=== PATIENT | female | born 1965 | race Two or more races ===

== ENCOUNTER 2016-06-17 07:02 | Inpatient (IN) | payer OTHER ==
[~2016-06-17] VITALS: Ht 167.6 cm; Wt 89.8 kg
[~2016-06-17 07:02] MED LIST: LISI-646 PO
[2016-06-17] MEDS ORDERED: ALBUTEROL SULF 2.5 MG/0.5ML(0.5%) NEB SOLN NEB ONE (10:15)
[2016-06-17] MEDS ORDERED: IPRATROPIUM BROM 0.5 MG/2.5ML INH SOL NEB ONE (10:15)
[2016-06-17] MEDS ORDERED: methylPREDNISolone SOD SUCC 125 MG/2 ML VL IV ONE (10:15)
[2016-06-17 10:46] LABS: Basophils # (auto) 0 uL; Basophils % (auto) 0.4 % (0.0-2.0); Eosinophils # (auto) 0 uL; Hematocrit 43.1 % (36.0-46.0); Hemoglobin 14.8 g/dL (12.2-16.2); Lymphocytes # (auto) 1.8 uL; Lymphocytes % (auto) 27.7 % (10.0-50.0); Mean Corpuscular Hemoglobin 31.8 pg (28.0-32.0); Mean Corpuscular Hgb Conc. 34.4 g/dL (32.0-36.0); Mean Corpuscular Volume 92.2 fL (80.0-100.0); Mean Platelet Volume 9.5 fL (7.4-10.4); Monocytes # (auto) 0.5 uL; Monocytes % (auto) 7.5 % (0.0-12.0); Neutrophils # (auto) 4.3 uL; Neutrophils % (auto) 64.4 % (37.0-80.0); Platelet Count (auto) 158 10^3/uL (140-450); Red Cell Distribution Width 13.5 % (11.6-16.0); White Blood Cell 6.6 10^3/uL (4.4-10.8)
[2016-06-17 10:56] LABS: Albumin 3.4 g/dL (3.4-5.0); Anion Gap 12 (5-15); Aspartate Aminotransferase 24 U/L (15-37); BUN/Creatinine Ratio 12.6; Blood Urea Nitrogen 14 mg/dL (7-18); Carbon Dioxide 26 mmol/L (21-32); Chloride 96 mmol/L (98-107); GFR African American 66 mL/min; GFR Non-African American 55 mL/min; Glucose 87 mg/dL (74-106); Sodium 134 mmol/L (136-145)
[2016-06-17 11:01] LABS: Alkaline Phosphatase 61 U/L (45-117); Bilirubin, Total 0.3 mg/dL (0.2-1.0); Total Protein 6.9 g/dL (6.4-8.2)
[2016-06-17 11:02] LABS: B-Type Natriuretic Peptide 10.22 pg/mL (0-100); INR 1.09 (0.9-1.15); Partial Thromboplastin Time 36.9 sec (22.64-33.71); Prothrombin Time 11.2 sec (9.37-12.3)
[2016-06-17 11:05] LABS: Potassium 2.9 mmol/L (3.5-5.1)
[2016-06-17] MEDS ORDERED: POTASSIUM CHL 10% (20 MEQ/15ML) ORAL SOLN PO ONE (11:15)
[2016-06-17 11:44] LABS: Temperature: 22.4 C (20.0-25.0)
[2016-06-17] MEDS ORDERED: cefTRIAXone 1GM/50ML D5W 50 ML IV ONE (14:15)
[2016-06-17] MEDS ORDERED: ACETAMINOPHEN 325 MG TAB PO PRN (14:30)
[2016-06-17] MEDS ORDERED: MORPHINE SULF INJ 2 MG/ML SYRINGE 1ML IV PRN (14:30)
[2016-06-17] MEDS ORDERED: HCTZ 25 MG TAB PO ONE (14:30)
[2016-06-17] MEDS ORDERED: ONDANSETRON HCL 4 MG/2 ML VIAL IV PRN (14:30)
[2016-06-17] MEDS ORDERED: MULTIPLE VITAMIN TAB PO ONE (14:30)
[2016-06-17] MEDS ORDERED: NIFEdipine ER 30 MG TAB PO ONE (14:30)
[2016-06-17 15:30] LABS: Calcium 8.2 mg/dL (8.5-10.1); Potassium 3.6 mmol/L (3.5-5.1)
[2016-06-17 15:48] VITALS: BP 113/64
[2016-06-17] MEDS: HYDROcodone-ACET 5/325MG TAB PO PRN ×2 (15:58→20:14)
[2016-06-17] MEDS ORDERED: HYDR25TA4 PO (16:47)
[2016-06-17] MEDS ORDERED: BECL0.07 INH (16:52)
[2016-06-17] MEDS ORDERED: NIFE30TA76 PO (16:52)
[2016-06-17 17:15] VITALS: BP 113/64
[2016-06-17] MEDS: methylPREDNISolone SOD SUCC 40 MG/ML VL IV SCH (17:46)
[2016-06-17] MEDS: BUDESONIDE (INHALATION) 0.5 MG/2 ML NEB NEB SCH (19:35)
[2016-06-17] MEDS: IPRATROPIUM BROM 0.5 MG/2.5ML INH SOL NEB SCH (19:35)
[2016-06-17] MEDS: ALBUTEROL SULF 2.5 MG/0.5ML(0.5%) NEB SOLN NEB SCH (19:35)
[2016-06-17] MEDS: TEMAZEPAM 15 MG CAP PO PRN (20:13)
[2016-06-17 21:48] LABS: Urine Color Yellow (Yellow); Urine Nitrite Negative (Negative)
[2016-06-17 21:49] LABS: Urine Bilirubin Negative (Negative); Urine Blood Negative /uL (Negative); Urine Glucose 50 mg/dL (Normal); Urine Ketone Negative (Negative); Urine RBC <1 /hpf (0 - 4); Urine Urobilinogen Normal (Negative)
[2016-06-17 21:50] LABS: Urine Hyaline Cast MOD /lpf (0 - 2); Urine Squamous Epithelial Cell FEW /hpf (<5)
[2016-06-17] MEDS: SODIUM CHLOR 0.9% PF (SALINE LOCK) 10ML VIAL IV SCH (21:52)
[2016-06-17 22:00] VITALS: BP 105/65
[2016-06-18] VITALS (7 sets, daily range): BP systolic 106–126; BP diastolic 53–77
[2016-06-18] MEDS: methylPREDNISolone SOD SUCC 40 MG/ML VL IV SCH ×4 (00:07→17:55)
[2016-06-18] MEDS: HYDROcodone-ACET 5/325MG TAB PO PRN ×4 (00:07→20:36)
[2016-06-18] MEDS: IPRATROPIUM BROM 0.5 MG/2.5ML INH SOL NEB SCH ×4 (00:22→18:44)
[2016-06-18] MEDS: ALBUTEROL SULF 2.5 MG/0.5ML(0.5%) NEB SOLN NEB SCH ×4 (00:22→18:44)
[2016-06-18] MEDS: SODIUM CHLOR 0.9% PF (SALINE LOCK) 10ML VIAL IV SCH ×3 (06:06→22:13)
[2016-06-18 06:40] LABS: Basophils # (auto) 0 uL; Eosinophils # (auto) 0 uL; Hematocrit 45.3 % (36.0-46.0); Hemoglobin 15.6 g/dL (12.2-16.2); Lymphocytes # (auto) 1.1 uL; Lymphocytes % (auto) 7.4 % (10.0-50.0); Mean Corpuscular Hgb Conc. 34.4 g/dL (32.0-36.0); Mean Corpuscular Volume 92.9 fL (80.0-100.0); Mean Platelet Volume 9.2 fL (7.4-10.4); Monocytes # (auto) 0.6 uL; Monocytes % (auto) 3.8 % (0.0-12.0); Neutrophils # (auto) 13.1 uL; Neutrophils % (auto) 88.8 % (37.0-80.0); Platelet Count (auto) 174 10^3/uL (140-450); Red Cell Distribution Width 13.3 % (11.6-16.0); White Blood Cell 14.8 10^3/uL (4.4-10.8)
[2016-06-18 07:01] LABS: Potassium 3.3 mmol/L (3.5-5.1)
[2016-06-18 07:11] LABS: Albumin 3.4 g/dL (3.4-5.0); BUN/Creatinine Ratio 20.7; Calcium 8.4 mg/dL (8.5-10.1)
[2016-06-18 07:15] LABS: Bilirubin, Total 0.3 mg/dL (0.2-1.0); Total Protein 7.2 g/dL (6.4-8.2)
[2016-06-18] MEDS: BUDESONIDE (INHALATION) 0.5 MG/2 ML NEB NEB SCH ×2 (07:47→18:44)
[2016-06-18] MEDS: cefTRIAXone 1GM/50ML D5W 50 ML IV SCH (09:07)
[2016-06-18] MEDS: POTASSIUM CHL 10 Meq TABLET PO SCH (09:45)
[2016-06-18] MEDS: MULTIPLE VITAMIN TAB PO SCH (09:46)
[2016-06-18] MEDS: HCTZ 25 MG TAB PO SCH (09:50)
[2016-06-18] MEDS ORDERED: NIFEdipine ER 30 MG TAB PO SCH (10:00)
[2016-06-18] MEDS: NIFEdipine ER 30 MG TAB PO SCH (13:03)
[2016-06-18] MEDS: TEMAZEPAM 15 MG CAP PO PRN (20:36)
[2016-06-18] MEDS: DOCUSATE SOD 100 MG CAP PO PRN (20:37)
[2016-06-18] MEDS ORDERED: BECLOMETHASONE 40 MCG IN SCH (22:00)
[2016-06-19] MEDS: HYDROcodone-ACET 5/325MG TAB PO PRN ×3 (00:31→22:00)
[2016-06-19] MEDS: methylPREDNISolone SOD SUCC 40 MG/ML VL IV SCH ×4 (00:31→17:22)
[2016-06-19 05:00] VITALS: BP 116/71
[2016-06-19] MEDS: SODIUM CHLOR 0.9% PF (SALINE LOCK) 10ML VIAL IV SCH ×3 (05:44→21:57)
[2016-06-19 06:32] LABS: Basophils # (auto) 0 uL; Eosinophils # (auto) 0 uL; Hematocrit 44.8 % (36.0-46.0); Hemoglobin 15.3 g/dL (12.2-16.2); Lymphocytes # (auto) 1.1 uL; Lymphocytes % (auto) 8.1 % (10.0-50.0); Mean Corpuscular Hgb Conc. 34.1 g/dL (32.0-36.0); Mean Corpuscular Volume 93.8 fL (80.0-100.0); Mean Platelet Volume 9.5 fL (7.4-10.4); Monocytes # (auto) 0.7 uL; Monocytes % (auto) 5.1 % (0.0-12.0); Neutrophils # (auto) 12.3 uL; Neutrophils % (auto) 86.8 % (37.0-80.0); Platelet Count (auto) 172 10^3/uL (140-450); Red Cell Distribution Width 13.6 % (11.6-16.0); White Blood Cell 14.1 10^3/uL (4.4-10.8)
[2016-06-19] MEDS: ALBUTEROL SULF 2.5 MG/0.5ML(0.5%) NEB SOLN NEB SCH ×4 (07:03→19:28)
[2016-06-19] MEDS: IPRATROPIUM BROM 0.5 MG/2.5ML INH SOL NEB SCH ×4 (07:04→19:28)
[2016-06-19 07:34] VITALS: BP 104/69
[2016-06-19 08:00] VITALS: BP 104/69
[2016-06-19] MEDS: cefTRIAXone 1GM/50ML D5W 50 ML IV SCH (09:00)
[2016-06-19] MEDS: NIFEdipine ER 30 MG TAB PO SCH (10:00)
[2016-06-19] MEDS: POTASSIUM CHL 10 Meq TABLET PO SCH (10:08)
[2016-06-19] MEDS: MULTIPLE VITAMIN TAB PO SCH (10:08)
[2016-06-19] MEDS: HCTZ 25 MG TAB PO SCH (10:08)
[2016-06-19] MEDS: BUDESONIDE (INHALATION) 0.5 MG/2 ML NEB NEB SCH ×2 (11:22→19:29)
[2016-06-19 11:56] VITALS: BP 98/60
[2016-06-19 16:35] VITALS: BP 104/48
[2016-06-19] MEDS: DOCUSATE SOD 100 MG CAP PO PRN (21:53)
[2016-06-19 22:00] VITALS: BP 124/71
[2016-06-19] MEDS: TEMAZEPAM 15 MG CAP PO PRN (22:00)
[2016-06-20] MEDS: methylPREDNISolone SOD SUCC 40 MG/ML VL IV SCH ×3 (00:19→12:00)
[2016-06-20] MEDS: ALBUTEROL SULF 2.5 MG/0.5ML(0.5%) NEB SOLN NEB SCH ×2 (00:30→06:32)
[2016-06-20] MEDS: IPRATROPIUM BROM 0.5 MG/2.5ML INH SOL NEB SCH ×2 (00:30→06:32)
[2016-06-20 05:00] VITALS: BP 133/77
[2016-06-20] MEDS: SODIUM CHLOR 0.9% PF (SALINE LOCK) 10ML VIAL IV SCH (06:15)
[2016-06-20] MEDS: BUDESONIDE (INHALATION) 0.5 MG/2 ML NEB NEB SCH (06:32)
[2016-06-20 08:00] VITALS: BP 119/62
[2016-06-20 08:30] VITALS: BP 119/62
[2016-06-20] MEDS: cefTRIAXone 1GM/50ML D5W 50 ML IV SCH (08:42)
[2016-06-20] MEDS: HCTZ 25 MG TAB PO SCH (09:31)
[2016-06-20] MEDS: MULTIPLE VITAMIN TAB PO SCH (09:31)
[2016-06-20] MEDS: POTASSIUM CHL 10 Meq TABLET PO SCH (09:31)
[2016-06-20] MEDS: NIFEdipine ER 30 MG TAB PO SCH (09:31)
[2016-06-20] MEDS: DOCUSATE SOD 100 MG CAP PO PRN (09:49)
[2016-06-20 10:18] VITALS: BP 119/62
== END 2016-06-20 12:20 | disposition home or self-care (01) | DRG 720 ==
LOC: ER 07:05 → OVERFLOW 07:06 → CENTRAL 15:33
PROVIDERS: ADMIT Internal Medicine; ATTEND Internal Medicine
DX: A41.9 Sepsis, unspecified organism (principal); J44.0 Chronic obstructive pulmonary disease with (acute) lower respiratory infection; J44.1 Chronic obstructive pulmonary disease with (acute) exacerbation; E87.1 Hypo-osmolality and hyponatremia; J45.901 Unspecified asthma with (acute) exacerbation; N18.3 Chronic kidney disease, stage 3 (moderate); E83.51 Hypocalcemia; J20.9 Acute bronchitis, unspecified; E87.6 Hypokalemia; I12.9 Hypertensive chronic kidney disease with stage 1 through stage 4 chronic kidney disease, or unspecified chronic kidney disease; T38.0X5A Adverse effect of glucocorticoids and synthetic analogues, initial encounter; F17.210 Nicotine dependence, cigarettes, uncomplicated; Z90.49 Acquired absence of other specified parts of digestive tract; Z79.899 Other long term (current) drug therapy; Z83.6 Family history of other diseases of the respiratory system; Y92.89 Other specified places as the place of occurrence of the external cause
CPT/HCPCS: 36415; 71020; 80048; 80053; 81001; 83880; 84484; 85025; 85610; 85730; 93005; 94640; 96365; 96375; J0696

== ENCOUNTER 2016-12-02 06:09 | Emergency (ER) | payer OTHER ==
[~2016-12-02] VITALS: Ht 167.6 cm; Wt 81.6 kg
[~2016-12-02 06:09] MED LIST changes: +BECL0.07 INH; +HYDR25TA4 PO; -LISI-646 PO; +NIFE30TA76 PO
[2016-12-02 06:20] VITALS: BP 124/74
== END 2016-12-02 08:06 | disposition home or self-care (01) ==
LOC: ER 06:11
DX: S62.307A Unspecified fracture of fifth metacarpal bone, left hand, initial encounter for closed fracture (principal); J44.9 Chronic obstructive pulmonary disease, unspecified; I10 Essential (primary) hypertension; F17.210 Nicotine dependence, cigarettes, uncomplicated; Y04.0XXA Assault by unarmed brawl or fight, initial encounter; Y93.89 Activity, other specified; Y99.8 Other external cause status; Y92.89 Other specified places as the place of occurrence of the external cause
CPT/HCPCS: 29125; 73130

== ENCOUNTER 2017-06-14 17:27 | Emergency (ER) | payer OTHER ==
[~2017-06-14] VITALS: Ht 170.2 cm; Wt 77.1 kg
[2017-06-14 20:25] VITALS: BP 115/75
[2017-06-14] MEDS ORDERED: ONDANSETRON HCL 4 MG/2 ML VIAL IM ONE (20:45)
[2017-06-14] MEDS ORDERED: HYDROcodone-ACET 7.5/325MG TAB PO ONE (21:15)
== END 2017-06-14 21:30 | disposition home or self-care (01) ==
LOC: ER 17:39
DX: G24.3 Spasmodic torticollis (principal); J44.9 Chronic obstructive pulmonary disease, unspecified; I10 Essential (primary) hypertension; F17.210 Nicotine dependence, cigarettes, uncomplicated; Z90.49 Acquired absence of other specified parts of digestive tract
CPT/HCPCS: 72040; 96372; 99284; J2405

== ENCOUNTER 2018-09-22 03:55 | Inpatient (IN) | payer OTHER ==
[~2018-09-22] VITALS: Ht 170.2 cm; Wt 77.0 kg
[2018-09-22] MEDS ORDERED: ALBUTEROL SULF 2.5 MG/0.5ML(0.5%) NEB SOLN HHN STA (04:24)
[2018-09-22] MEDS ORDERED: methylPREDNISolone SOD SUCC 125 MG/2 ML VL ONE (04:28)
[2018-09-22] MEDS ORDERED: SODIUM CHLORIDE 0.9% 1,000 ML IV ONE (04:30)
[2018-09-22] MEDS ORDERED: IPRATROPIUM BROM 0.5 MG/2.5ML INH SOL NEB ONE (04:30)
[2018-09-22] MEDS ORDERED: methylPREDNISolone SOD SUCC 125 MG/2 ML VL IV ONE (04:30)
[2018-09-22 05:54] LABS: Basophils # (auto) 0 uL; Basophils % (auto) 0.6 % (0.0-2.0); Eosinophils # (auto) 0 uL; Eosinophils % (auto) 0.5 % (0.0-7.0); Hematocrit 41.4 % (36.0-46.0); Hemoglobin 14.4 g/dL (12.2-16.2); Lymphocytes # (auto) 1.1 uL; Lymphocytes % (auto) 21.5 % (10.0-50.0); Mean Corpuscular Hemoglobin 32.4 pg (28.0-32.0); Mean Corpuscular Hgb Conc. 34.8 g/dL (32.0-36.0); Mean Corpuscular Volume 93.1 fL (80.0-100.0); Monocytes # (auto) 0.5 uL; Monocytes % (auto) 10.4 % (0.0-12.0); Neutrophils # (auto) 3.5 uL; Platelet Count (auto) 123 10^3/uL (140-450); Red Blood Cells 4.44 10^6/uL (4.0-5.20); Red Cell Distribution Width 13.3 % (11.8-14.3); White Blood Cell 5.2 10^3/uL (4.4-10.8)
[2018-09-22 06:00] LABS: Albumin 3.2 g/dL (3.4-5.0); Anion Gap 6 (5-15); Blood Urea Nitrogen 5 mg/dL (7-18); Carbon Dioxide 28 mmol/L (21-32); Chloride 106 mmol/L (98-107); Glucose 111 mg/dL (74-106); Sodium 140 mmol/L (136-145)
[2018-09-22 06:07] LABS: Alanine Aminotransferase 32 U/L (13-56); Alkaline Phosphatase 76 U/L (45-117); Aspartate Aminotransferase 19 U/L (15-37); BUN/Creatinine Ratio 6.9; Bilirubin, Total 0.4 mg/dL (0.2-1.0); GFR African American 108 mL/min; GFR Non-African American 89 mL/min; Total Protein 6.2 g/dL (6.4-8.2)
[2018-09-22 06:12] LABS: Potassium 2.9 mmol/L (3.5-5.1)
[2018-09-22 06:14] LABS: INR 0.98 (0.9-1.15); Partial Thromboplastin Time 32.8 sec (23.64-32.05)
[2018-09-22] MEDS ORDERED: POTASSIUM CHL 20 Meq TABLET PO ONE (06:15)
[2018-09-22] MEDS: POTASSIUM CHL 20MEQ/100ML 100 ML IV SCH ×2 (06:26→08:15)
[2018-09-22] MEDS ORDERED: ALBUTEROL SULF 2.5 MG/0.5ML(0.5%) NEB SOLN HHN ONE (06:30)
[2018-09-22] MEDS ORDERED: LEVOFLOXACIN 500MG 100 ML IV ONE (06:30)
[2018-09-22] MEDS ORDERED: SODIUM CHLORIDE 0.9% 500 ML IV ONE (06:30)
[2018-09-22] MEDS ORDERED: IOHEXOL 350 MG/ML 100ML IJ ONE (07:09)
[2018-09-22] MEDS ORDERED: POTASSIUM CHLORIDE 20 MEQ, LIDOCAINE 1% (LOCAL ANESTH.) 2 ML in SODIUM CHL 0.9% 100 ML IV ONE (08:30)
[2018-09-22] MEDS ORDERED: MORPHINE SULF INJ 2 MG/ML SYRINGE 1ML IV PRN ×2 (14:45)
[2018-09-22] MEDS ORDERED: ATORVASTATIN 20 MG TAB PO ONE (14:45)
[2018-09-22] MEDS ORDERED: NITROGLYCERIN 0.4 MG SL TAB SL PRN (14:45)
[2018-09-22] MEDS ORDERED: ACETAMINOPHEN 500 MG TAB PO PRN (14:45)
[2018-09-22] MEDS ORDERED: ONDANSETRON HCL 4 MG/2 ML VIAL IV PRN (14:45)
[2018-09-22] MEDS: SODIUM CHLORIDE 0.9% 1,000 ML IV SCH (14:52)
[2018-09-22 15:12] LABS: Urine Bacteria NONE SEEN /hpf (None Seen); Urine Blood Negative /uL (Negative); Urine Specific Gravity 1.008 (1.001-1.035); Urine WBC <1 /hpf (0 - 5)
[2018-09-22] MEDS: IPRATROPIUM BROM 0.5 MG/2.5ML INH SOL NEB SCH ×2 (19:07→22:23)
[2018-09-22] MEDS: ALBUTEROL SULF 2.5 MG/0.5ML(0.5%) NEB SOLN NEB SCH ×2 (19:07→22:23)
[2018-09-22] MEDS: BUDESONIDE (INHALATION) 0.5 MG/2 ML NEB NEB SCH (19:07)
[2018-09-22 19:44] VITALS: BP 115/73
--- NOTE | 2018-09-22 19:47 | NUR ---
Telemetry admit from ER CATHYGENNA PEÑA admitted to Telemetry unit after no SBAR received. Patient oriented to ESTELA STACK, RN primary RN, unit, room, bed, and unit policies regarding patient care and visiting hours. Patient now on continuous telemetry monitoring, tele box # [id number] and telemetry reading on arrival to unit is sinus rhythm at 82 beats per minute with notched P waves. Patient placed on bedside oxygen at 5.0 liters via oxymizer, weighed by bedscale and encouraged to call if they need something. All questions and concerns addressed, patient verbalized understanding. Bed in lowest locked position, side rails up x2, call light within reach. Patient reporting 9/10 pain to bilateral ribs after coughing, will medicate as ordered and continue to monitor. Will continue to round every hour and as needed.
[2018-09-22] MEDS ORDERED: TRAM50TA2 PO (20:14)
[2018-09-22] MEDS ORDERED: SIMV10TA73 PO (20:14)
[2018-09-22] MEDS ORDERED: TIZA4CAP PO (20:14)
[2018-09-22 22:00] VITALS: BP 114/70
[2018-09-23] MEDS: SODIUM CHLORIDE 0.9% 1,000 ML IV SCH ×3 (00:44→20:32)
[2018-09-23 05:44] VITALS: BP 111/66
--- NOTE | 2018-09-23 06:45 | NUR ---
Closing Note Patient lying in bed, eyes closed, respirations even and unlabored, appears asleep. No s/s of distress. Will endorse care to dayshift RN.
[2018-09-23] MEDS: IPRATROPIUM BROM 0.5 MG/2.5ML INH SOL NEB SCH ×5 (06:57→22:59)
[2018-09-23] MEDS: ALBUTEROL SULF 2.5 MG/0.5ML(0.5%) NEB SOLN NEB SCH ×5 (06:57→22:59)
--- NOTE | 2018-09-23 07:30 | NUR ---
OPENING SHIFT NOTE PATIENT UP AMBULATING WITH A STEADY GAIT. DENIES ANY PAIN SOB OR ANY DISTRESS. PATIENT VERBALIZED UNDERSTANDING OF DAYS POC. WILL CONTINUE TO MONITOR Addendum: 09/23/18 at 1116 by BRIANNE EDWARDS RN RN WRONG PATIENT NOTE
--- NOTE | 2018-09-23 07:35 | NUR ---
OPENING SHIFT NOTE PATIENT LAYING IN BED. DENIES SOB OR ANY DISTRESS. PATIENT VERBALIZED HAVING PAIN FROM COUGHING WILL GIVE MEDICATIONS ORDERED. PATIENT VERBALIZED UNDERSTANDING POC. BED IS IN LOWEST LOCKED POSITION. CALL LIGHT IS WITHIN REACH. WILL CONTINUE TO MONITOR
[2018-09-23] MEDS: HYDROcodone-ACET 5/325MG TAB PO PRN ×2 (08:22→20:32)
[2018-09-23] MEDS: cefTRIAXone 1GM/50ML D5W 50 ML IV SCH (08:22)
[2018-09-23 08:36] LABS: Basophils # (auto) 0 uL; Basophils % (auto) 0.5 % (0.0-2.0); Eosinophils # (auto) 0 uL; Eosinophils % (auto) 0.5 % (0.0-7.0); Hematocrit 41.1 % (36.0-46.0); Lymphocytes # (auto) 2.7 uL; Lymphocytes % (auto) 34.4 % (10.0-50.0); Mean Corpuscular Hemoglobin 31.9 pg (28.0-32.0); Mean Corpuscular Hgb Conc. 33.9 g/dL (32.0-36.0); Mean Corpuscular Volume 94.1 fL (80.0-100.0); Monocytes # (auto) 0.9 uL; Monocytes % (auto) 11.8 % (0.0-12.0); Neutrophils # (auto) 4.2 uL; Neutrophils % (auto) 52.8 % (37.0-80.0); Platelet Count (auto) 118 10^3/uL (140-450); Red Blood Cells 4.37 10^6/uL (4.0-5.20); Red Cell Distribution Width 13.5 % (11.8-14.3); White Blood Cell 7.9 10^3/uL (4.4-10.8)
[2018-09-23 08:41] LABS: Potassium 3.2 mmol/L (3.5-5.1)
[2018-09-23 08:51] LABS: BUN/Creatinine Ratio 15.7; Bilirubin, Total 0.4 mg/dL (0.2-1.0); Calcium 8.2 mg/dL (8.5-10.1); Magnesium 2.5 mg/dL (1.6-2.6); Total Protein 6.3 g/dL (6.4-8.2)
--- NOTE | 2018-09-23 10:00 | NUR ---
IV insertion IV access obtained, via clean sterile technique by inserting 22 gauge catheter at RIGHT WRIST after 2 attempt(s). IV secured properly. No trauma to site. Patient tolerated well.
--- NOTE | 2018-09-23 10:00 | NUR ---
IV removal IV DC'd with clean sterile technique, catheter fully intact. Pressure dressing applied to site. Patient tolerated well.
[2018-09-23] MEDS: NIFEdipine ER 30 MG TAB PO SCH (10:05)
[2018-09-23] MEDS: PANTOPRAZOLE 40 MG TAB PO SCH (10:06)
[2018-09-23] MEDS: AZITHROMYCIN 500MG/ 250ML 250 ML IV SCH (10:07)
[2018-09-23] MEDS: BUDESONIDE (INHALATION) 0.5 MG/2 ML NEB NEB SCH ×2 (10:08→22:59)
--- NOTE | 2018-09-23 14:40 | NUR ---
AT BEDSIDE FARIDA AT BEDSIDE. GAVE NEW ORDERS, READ BACK TO VERIFY. WILL CARRY OUT ORDERS
[2018-09-23] MEDS: Ensure Enlive Chocolate 8oz Bottle PO SCH (18:00)
[2018-09-23] MEDS: guaiFENesin 200 MG/10 ML UD PO SCH ×2 (18:30→21:54)
--- NOTE | 2018-09-23 19:13 | NUR ---
Opening Shift Note Assumed care of patient, awake and alertx4. No S/S of distress/SOB or pain. Bed is in lowest position, call light is within reach, side rails up x2. Instructed on POC and to call for assist PRN, will continue to monitor for changes Q1hr and PRN.
--- NOTE | 2018-09-23 19:17 | NUR ---
END OF SHIFT NOTE PATIENT IN BED WATCHING TV WHILE ON HER PHONE SHOWING NO S.S OF DISTRESS OR SOB. BED IS IN LOWEST LOCKED POSITION CALL LIGHT WITHIN REACH. ENDORSING CARE TO NOC RN
[2018-09-23 22:00] VITALS: BP 132/78
[2018-09-24 05:00] VITALS: BP 117/66
[2018-09-24 06:27] LABS: Basophils # (auto) 0 uL; Basophils % (auto) 0.5 % (0.0-2.0); Eosinophils # (auto) 0.1 uL; Eosinophils % (auto) 1.4 % (0.0-7.0); Hematocrit 40.4 % (36.0-46.0); Hemoglobin 13.9 g/dL (12.2-16.2); Lymphocytes # (auto) 2.3 uL; Lymphocytes % (auto) 31.8 % (10.0-50.0); Mean Corpuscular Hemoglobin 32.1 pg (28.0-32.0); Mean Corpuscular Hgb Conc. 34.4 g/dL (32.0-36.0); Mean Corpuscular Volume 93.2 fL (80.0-100.0); Monocytes # (auto) 0.6 uL; Monocytes % (auto) 8.7 % (0.0-12.0); Neutrophils # (auto) 4.2 uL; Neutrophils % (auto) 57.6 % (37.0-80.0); Nucleated Red Blood Cells % 0.1 %; Platelet Count (auto) 129 10^3/uL (140-450); Red Blood Cells 4.34 10^6/uL (4.0-5.20); Red Cell Distribution Width 13.7 % (11.8-14.3); White Blood Cell 7.3 10^3/uL (4.4-10.8)
[2018-09-24] MEDS: SODIUM CHLORIDE 0.9% 1,000 ML IV SCH ×2 (06:33→16:45)
[2018-09-24] MEDS: IPRATROPIUM BROM 0.5 MG/2.5ML INH SOL NEB SCH ×5 (06:48→22:34)
[2018-09-24] MEDS: ALBUTEROL SULF 2.5 MG/0.5ML(0.5%) NEB SOLN NEB SCH ×5 (06:48→22:33)
[2018-09-24 06:50] LABS: Potassium 3.4 mmol/L (3.5-5.1)
[2018-09-24 06:53] LABS: Calcium 8.5 mg/dL (8.5-10.1)
--- NOTE | 2018-09-24 07:40 | NUR ---
OPENING SHIFT NOTE PATIENT IS AWAKE UP IN BED WATCHING TV AND EATING BREAKFAST. PATIENT DENIES PAIN, SOB OR ANY DISTRESS. PATIENT VERBALIZED UNDERSTANDING OF DAYS POC. BED IS IN LOWEST LOCKED POSITION CALL LIGHT IS WITHIN REACH
[2018-09-24] MEDS: Ensure Enlive Chocolate 8oz Bottle PO SCH ×3 (08:00→18:00)
[2018-09-24 09:03] VITALS: BP 104/58
[2018-09-24] MEDS: AZITHROMYCIN 500MG/ 250ML 250 ML IV SCH (09:04)
[2018-09-24] MEDS: cefTRIAXone 1GM/50ML D5W 50 ML IV SCH (09:04)
[2018-09-24] MEDS: PANTOPRAZOLE 40 MG TAB PO SCH (09:05)
[2018-09-24] MEDS: NICOTINE 21MG/24 HR TOPICAL PATCH TD SCH (09:05)
[2018-09-24] MEDS: NIFEdipine ER 30 MG TAB PO SCH (09:06)
[2018-09-24] MEDS: BUDESONIDE (INHALATION) 0.5 MG/2 ML NEB NEB SCH ×2 (10:15→18:39)
[2018-09-24] MEDS: guaiFENesin 200 MG/10 ML UD PO SCH ×4 (10:25→21:18)
[2018-09-24 10:51] LABS: BUN/Creatinine Ratio 11.5
[2018-09-24] MEDS ORDERED: POTASSIUM CHL 10 Meq TABLET PO ONE (11:15)
[2018-09-24 12:46] VITALS: BP 122/68
[2018-09-24 16:19] VITALS: BP 104/59
[2018-09-24] MEDS: HYDROcodone-ACET 5/325MG TAB PO PRN (17:47)
--- NOTE | 2018-09-24 18:45 | NUR ---
END OF SHIFT NOTE PATIENT LAYING IN BED WATCHING TV. SHOWING NO S.S OF DISTRESS OR SOB. BED IS IN LOWEST LOCKED POSITION CALL LIGHT WITHIN REACH WILL ENDORSE CARE TO NOC RN
--- NOTE | 2018-09-24 19:40 | NUR ---
OPENING SHIFT NOTE RECEIVED REPORT FROM DAYSHIFT RN. PATIENT RESTING COMFORTABLY IN BED WITH EYES CLOSED. NO S/S OF DISTRESS OR SOB. NO PAIN NOTED OR REPORTED. PATIENT A/O X4. UPDATED PATIENT ON POC, VERBALIZED UNDERSTANDING. BED LOCKED IN LOW POSITION, CALL LIGHT WITHIN REACH. WILL CONTINUE TO MONITOR PATIENT Q1HR AND PRN.
[2018-09-24 22:29] VITALS: BP 99/59
[2018-09-25] MEDS: SODIUM CHLORIDE 0.9% 1,000 ML IV SCH ×3 (02:09→22:45)
[2018-09-25 05:23] VITALS: BP 121/69
[2018-09-25 05:52] LABS: Basophils # (auto) 0 uL; Basophils % (auto) 0.7 % (0.0-2.0); Eosinophils # (auto) 0.1 uL; Eosinophils % (auto) 2.2 % (0.0-7.0); Hematocrit 43.3 % (36.0-46.0); Hemoglobin 14.7 g/dL (12.2-16.2); Lymphocytes # (auto) 1.9 uL; Lymphocytes % (auto) 29.6 % (10.0-50.0); Mean Corpuscular Hemoglobin 32.3 pg (28.0-32.0); Mean Corpuscular Volume 94.9 fL (80.0-100.0); Monocytes # (auto) 0.7 uL; Monocytes % (auto) 11.3 % (0.0-12.0); Neutrophils # (auto) 3.6 uL; Neutrophils % (auto) 56.2 % (37.0-80.0); Platelet Count (auto) 158 10^3/uL (140-450); Red Blood Cells 4.56 10^6/uL (4.0-5.20); Red Cell Distribution Width 13.5 % (11.8-14.3); White Blood Cell 6.4 10^3/uL (4.4-10.8)
[2018-09-25] MEDS: ALBUTEROL SULF 2.5 MG/0.5ML(0.5%) NEB SOLN NEB SCH ×5 (06:12→22:30)
[2018-09-25] MEDS: IPRATROPIUM BROM 0.5 MG/2.5ML INH SOL NEB SCH ×5 (06:12→22:30)
[2018-09-25 06:13] LABS: BUN/Creatinine Ratio 16.2; Calcium 9.2 mg/dL (8.5-10.1); Potassium 5.1 mmol/L (3.5-5.1)
--- NOTE | 2018-09-25 07:30 | NUR ---
Opening Note Received report from scientific photographer RN. Patient is awake, alert and oriented x4. No signs or symptoms of distress noted at this time. Patient is on 2L NC, denies shortness of breath at this time. Patient complains of upper abdominal pain 5/10, pain increases when coughing. Patient not requesting pain medications at this time. Reviewed plan of care with patient, patient verbalized understanding. Bed in low and locked position, call light within reach. Bed in low and locked position,call light within reach. Will continue to monitor Q1 hour and PRN.
[2018-09-25] MEDS: Ensure Enlive Chocolate 8oz Bottle PO SCH ×3 (08:09→17:33)
[2018-09-25] MEDS: guaiFENesin 200 MG/10 ML UD PO SCH ×4 (08:09→22:05)
[2018-09-25 08:47] VITALS: BP 111/60
[2018-09-25] MEDS: PANTOPRAZOLE 40 MG TAB PO SCH (09:34)
[2018-09-25] MEDS: NIFEdipine ER 30 MG TAB PO SCH (09:34)
[2018-09-25] MEDS: cefTRIAXone 1GM/50ML D5W 50 ML IV SCH (09:35)
[2018-09-25] MEDS: NICOTINE 21MG/24 HR TOPICAL PATCH TD SCH (09:35)
[2018-09-25] MEDS: BUDESONIDE (INHALATION) 0.5 MG/2 ML NEB NEB SCH ×2 (10:07→18:15)
--- NOTE | 2018-09-25 10:07 | NUR ---
Respiratory note: PT PLACED ON RA FOR POSSIBLE RA ABG FOR HOME OXYGEN QUALIFICATION. SPO2 NOTED TO BE 94%. 2L N/C BEDSIDE. PT AWARE OF BEING PLACED ON RA, DENIES ANY SOB OR DIFF BREATHING. WILL CONTINUE TO MONITOR. MED NEB TX GIVEN AT THIS TIME VIA MASK WITHOUT INCIDENT. TX BEING NEBULIZED ON MEDICAL AIR.
[2018-09-25] MEDS: AZITHROMYCIN 500MG/ 250ML 250 ML IV SCH (10:38)
--- NOTE | 2018-09-25 10:38 | NUR ---
Respiratory note: SPO2 ASSESSED ON RA S/P 30 MINUTES. SPO2 92%. PT DENIES SOB OR DIFF BREATHING.
--- NOTE | 2018-09-25 10:50 | NUR ---
Respiratory note: ASSIGNED HOSPITALIST PAGED FOR NOTIFICATION OF SPO2 92% ON RA AND TO VERIFY IF ABG IS STILL NEEDED.
[2018-09-25 12:34] VITALS: BP 131/73
--- NOTE | 2018-09-25 12:34 | NUR ---
Nutrition Assessment Notes please see attached link for complete assessment Est. Needs BW [id number] kcal (23-25 kcal/kgBW), 75-82 gms pro (1.0-1.1 gms/kgBW). Will continue to monitor pertinent labs and reassess nutrient need prn Addendum: 09/25/18 at [address] Amended: Links added.
[2018-09-25] MEDS: methylPREDNISolone SOD SUCC 40 MG/ML VL IV SCH ×3 (14:12→23:53)
--- NOTE | 2018-09-25 14:50 | NUR ---
IV catheter removed IV catheter removed from right hand, catheter intact. Pressure dressing applied. Patient tolerated well.
--- NOTE | 2018-09-25 14:51 | NUR ---
IV Insertion IV access obtained, via clean sterile technique by inserting 22 gauge catheter at [facility] after one attempt. IV secured properly. No trauma to site. Patient tolerated procedure well.
[2018-09-25 16:48] VITALS: BP 140/81
[2018-09-25] MEDS: HYDROcodone-ACET 5/325MG TAB PO PRN (17:34)
--- NOTE | 2018-09-25 19:15 | NUR ---
Closing Note Report given to fitness attendant MIKE Narvaez. Patient is awake, alert and oriented x4. No signs or symptoms of distress noted at this time.
[2018-09-25 20:34] VITALS: BP 140/81
[2018-09-25 22:00] VITALS: BP 115/62
[2018-09-26 05:00] VITALS: BP 126/72
[2018-09-26] MEDS: methylPREDNISolone SOD SUCC 40 MG/ML VL IV SCH ×3 (05:42→17:13)
[2018-09-26] MEDS: IPRATROPIUM BROM 0.5 MG/2.5ML INH SOL NEB SCH ×5 (06:40→21:28)
[2018-09-26] MEDS: ALBUTEROL SULF 2.5 MG/0.5ML(0.5%) NEB SOLN NEB SCH ×5 (06:41→21:28)
--- NOTE | 2018-09-26 07:12 | NUR ---
Opening Note Received report from shift mechanic RN. Patient is awake, alert and oriented x4. No signs or symptoms of distress noted at this time. Patient is on room air, denies shortness of breath at this time. Patient denies pain at this time. Reviewed plan of care with patient, patient verbalized understanding. Bed in low and locked position, call light within reach. Will continue to monitor Q1 hour and PRN.
[2018-09-26] MEDS: guaiFENesin 200 MG/10 ML UD PO SCH ×4 (08:40→21:41)
[2018-09-26] MEDS: Ensure Enlive Chocolate 8oz Bottle PO SCH ×3 (08:40→18:29)
[2018-09-26] MEDS: NICOTINE 21MG/24 HR TOPICAL PATCH TD SCH (08:45)
[2018-09-26] MEDS: cefTRIAXone 1GM/50ML D5W 50 ML IV SCH (08:46)
[2018-09-26] MEDS: PANTOPRAZOLE 40 MG TAB PO SCH (08:46)
[2018-09-26] MEDS: NIFEdipine ER 30 MG TAB PO SCH (08:46)
[2018-09-26] MEDS: LEVOFLOXACIN 500 MG TAB PO SCH (08:48)
[2018-09-26] MEDS: SODIUM CHLORIDE 0.9% 1,000 ML IV SCH ×3 (08:52→21:30)
[2018-09-26 09:00] VITALS: BP 127/69
--- NOTE | 2018-09-26 09:48 | NUR ---
Respiratory note: ABG ON ROOM AIR NOT DONE. PT REFUSED. SPO2 95% ON ROOM AIR. RN NOTIFIED.
[2018-09-26] MEDS: BUDESONIDE (INHALATION) 0.5 MG/2 ML NEB NEB SCH ×2 (09:50→21:28)
[2018-09-26 13:00] VITALS: BP 123/66
[2018-09-26 17:00] VITALS: BP 133/75
--- NOTE | 2018-09-26 18:05 | NUR ---
closing Note Report given to night clerk auditor RN. Patient is ambulating in hallway. No signs or symptoms of distress noted at this time.
--- NOTE | 2018-09-26 19:50 | NUR ---
AMBULATION PATIENT AMBULATING UP AND DOWN HALLWAYS AROUND NURSING STATION. NO S/S OF DISTRESS NOTED, PATIENT ON ROOM AIR. STEADY GAIT NOTED. PATIENT WAITING FOR DOCTOR TO ROUND, PATIENT STATES SHE WANTS TO GO HOME.
--- NOTE | 2018-09-26 20:15 | NUR ---
HOSPITALIST PAGED PATIENT WANTS TO LEAVE AMA
--- NOTE | 2018-09-26 20:18 | NUR ---
AMA Note GENNA MORGAN states they want to leave the hospital Against Medical Advice (AMA). Patient encouraged to stay for further treatment/stabilization. Hospitalist paged, awaiting return call. Patient states she does not wish to wait and be seen by MD. Patient advised of the risks and benefits of leaving AMA. Patient verbalized understanding. Patient encouraged to return to the ER if symptoms do not improve or worsen.
--- NOTE | 2018-09-26 20:20 | NUR ---
AMA Patient pulling at IV dressing to be removed, instructed patient I will remove IV line. IV removed from right hand with catheter intact, pressure dressing applied. Patient removed her Telemetry unit and set it at bedside, Telemetry unit returned to [facility]. No distress noted at time of departure.
--- NOTE | 2018-09-26 20:40 | NUR ---
PATIENT DECIDED NOT TO LEAVE AMA. PATIENT BACK IN BED WITH NO S/S OF DISTRESS NOTED. AWAITING CALL BACK FROM HOSPITALIST. WILL PLACE PATIENT BACK ON TELEMETRY AND INSERT NEW IV LINE.
--- NOTE | 2018-09-26 20:40 | NUR ---
IV insertion IV access obtained, via clean sterile technique by inserting 20 gauge catheter at Left AC after 1 attempt. IV secured properly. No trauma to site. Patient tolerated well. NOTE: Patient connected to IV Fluids running NS@100ml/hr as ordered. Addendum: 09/26/18 at 214 by Bernadette Levy RN CORRECT TIME 214
--- NOTE | 2018-09-26 20:51 | NUR ---
HOSPITALIST RETURNS CALL HOSPITALIST FRANCOISE RETURNS CALL, UPDATED ON PATIENT WANTING TO LEAVE AMA. PATIENT DECIDED TO STAY. PATIENT OF PER PATIENT DOCTOR DID NOT SEE HER TODAY TO DISCHARGE, NO NEW ORDERS RECEIVED.
--- NOTE | 2018-09-26 20:59 | NUR ---
RT PAGED FOR BREATHING TREATMENT.
[2018-09-26 21:07] VITALS: BP 143/82
--- NOTE | 2018-09-26 21:35 | NUR ---
PATIENT BACK ON TELEMETRY. TELE BOX #10 PLACED ON PATIENT. TELE READING IS NSR@86BPM.
--- NOTE | 2018-09-26 21:40 | NUR ---
IV insertion IV access obtained, via clean sterile technique by inserting 20 gauge catheter at Left AC after 1 attempt. IV secured properly. No trauma to site. Patient tolerated well. NOTE: Patient connected to IV Fluids running NS@100ml/hr as ordered.
--- NOTE | 2018-09-26 22:20 | NUR ---
IV removal IV DC'd Left AC with clean sterile technique, catheter fully intact. Pressure dressing applied to site. Patient tolerated well. NOTE: Patient reporting IV site discomfort/ IV site benign. Patient requesting IV site be changed.
--- NOTE | 2018-09-26 22:35 | NUR ---
IV insertion IV access obtained, via clean sterile technique by inserting 22 gauge catheter at Right Hand after 1 attempt. IV secured properly. No trauma to site. Patient tolerated well. IV inserted by Baron MCKEON.
[2018-09-27] MEDS: methylPREDNISolone SOD SUCC 40 MG/ML VL IV SCH ×2 (00:33→06:05)
[2018-09-27] MEDS: HYDROcodone-ACET 5/325MG TAB PO PRN (00:39)
[2018-09-27 05:00] VITALS: BP 121/78
[2018-09-27] MEDS: IPRATROPIUM BROM 0.5 MG/2.5ML INH SOL NEB SCH ×2 (06:37→10:33)
[2018-09-27] MEDS: ALBUTEROL SULF 2.5 MG/0.5ML(0.5%) NEB SOLN NEB SCH ×2 (06:37→10:33)
[2018-09-27] MEDS: BUDESONIDE (INHALATION) 0.5 MG/2 ML NEB NEB SCH (06:37)
--- NOTE | 2018-09-27 07:10 | NUR ---
Opening Note Received report from digital media planner RN. Patient is awake, alert and oriented x4. No signs or symptoms of distress noted at this time. Patient is agitated stating "I wasn't seen by the doctor yesterday, and I was supposed to be discharged." Charge nurse Brent is aware. Patient is on room air, denies shortness of breath. Reviewed plan of care with patient, patient verbalized understanding. Bed in low and locked position, call light within reach. Will continue to monitor Q1 hour and PRN.
[2018-09-27] MEDS: Ensure Enlive Chocolate 8oz Bottle PO SCH (08:12)
[2018-09-27] MEDS: guaiFENesin 200 MG/10 ML UD PO SCH (08:12)
[2018-09-27 09:00] VITALS: BP 138/86
--- NOTE | 2018-09-27 09:14 | NUR ---
Paged Dr. Montano Paged Dr. Curiel regarding patient being angry for not being seen yesterday. Awaiting call back
[2018-09-27] MEDS: PANTOPRAZOLE 40 MG TAB PO SCH (10:04)
[2018-09-27] MEDS: NIFEdipine ER 30 MG TAB PO SCH (10:04)
[2018-09-27] MEDS: NICOTINE 21MG/24 HR TOPICAL PATCH TD SCH (10:04)
[2018-09-27] MEDS: LEVOFLOXACIN 500 MG TAB PO SCH (10:48)
[2018-09-27] MEDS: cefTRIAXone 1GM/50ML D5W 50 ML IV SCH (10:48)
[2018-09-27 10:57] VITALS: BP 138/86
--- NOTE | 2018-09-27 11:45 | NUR ---
DISCHARGE Discharge instructions given as ordered. Encourage to follow up with primary care physician as instructed. All questions and concerns addressed. Patient verbalized understanding. Medication reconciliation form completed and copy given to patient. New prescriptions given to patient. IV removed, catheter intact, pressure dressing applied. Tele box removed and sent back to [facility]. Patient ambulated to personal vehicle with all belongings. No signs or symptoms of distress noted at this time.
== END 2018-09-27 11:45 | disposition home or self-care (01) | DRG 140 ==
LOC: ER 04:10 → TELE 11:27 → TELE-WESTW 19:47
PROVIDERS: ADMIT Nurse Practitioner Acute Care; ATTEND Internal Medicine Pulmonary Disease
DX: J44.0 Chronic obstructive pulmonary disease with (acute) lower respiratory infection (principal); J96.01 Acute respiratory failure with hypoxia; J18.1 Lobar pneumonia, unspecified organism; E44.0 Moderate protein-calorie malnutrition; J20.9 Acute bronchitis, unspecified; J44.1 Chronic obstructive pulmonary disease with (acute) exacerbation; J45.901 Unspecified asthma with (acute) exacerbation; E87.6 Hypokalemia; I10 Essential (primary) hypertension; E78.5 Hyperlipidemia, unspecified; Z78.0 Asymptomatic menopausal state; Z79.51 Long term (current) use of inhaled steroids; Z79.899 Other long term (current) drug therapy; Z82.5 Family history of asthma and other chronic lower respiratory diseases; Z68.26 Body mass index [BMI] 26.0-26.9, adult; Z90.49 Acquired absence of other specified parts of digestive tract
CPT/HCPCS: 36415; 36600; 71045; 71275; 80048; 80053; 81001; 82805; 83735; 83880; 84484; 85025; 85379; 85610; 85730; 87040; 93005; 94640; 94761; 96365; 96366; 96367; 96375; G0378; J0696; J1956; J2001; J3480